=== PATIENT | male | born 1980 | race Caucasian/White ===

== ENCOUNTER 2018-03-27 20:26 | Emergency (ER) | payer SELFPAY ==
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
[2018-03-27 21:17] LABS: ABSOLUTE BASOPHILS # (AUTO) 0.1 10^3/uL (0.0-0.2); ABSOLUTE EOSINOPHILS # (AUTO) 0.1 10^3/uL (0.0-0.6); ABSOLUTE LYMPHOCYTES (AUTO) 2.5 10^3/uL (0.5-4.7); ABSOLUTE MONOCYTES (AUTO) 0.4 10^3/uL (0.1-1.4); BASOPHILS % (AUTO) 0.7 % (0-2); EOSINOPHILS % (AUTO) 1.1 % (0-6); HEMATOCRIT 41.2 % (37.9-51.0); HEMOGLOBIN 14.7 g/dL (13.5-17.0); MEAN CORPUSCULAR HEMOGLOBIN 29.3 pg (27.0-33.4); MEAN CORPUSCULAR HGB CONC 35.7 g/dL (32.0-36.0); MEAN CORPUSCULAR VOLUME 82 fl (80-97); MONOCYTES % (AUTO) 5.2 % (3-13); PLATELET COUNT 277 10^3/uL (150-450); RED BLOOD COUNT 5.02 10^6/uL (4.35-5.55); RED CELL DISTRIBUTION WIDTH 13.4 % (11.5-14.0); TOTAL CELLS COUNTED % (AUTO) 100 %; WHITE BLOOD COUNT 8.1 10^3/uL (4.0-10.5)
--- NOTE | 2018-03-27 21:20 | ER Document Report ---
ED General - General Chief Complaint: Psych Problem Stated Complaint: PSYCH PROBLEM Time Seen by Provider: 03/27/18 20:45 Notes: Patient is a 38-year-old male without chronic medical problems, no formally diagnosed mental health disorders in the past who presents with concerns of progressively worsening agitation and anger management issues. Patient states that for the past several months he has become increasingly erratic, having bursts of rage and taking it out on his significant other. He states that many of his symptoms started after his daughter was murdered last August. He also notes that inconsistent job employment and housing has made it difficult for him to cope. His significant other at the bedside corroborates his story. The patient does note that he has a history of passive suicidal thoughts but denies any active suicidal ideation or any plan to harm himself. He has not seen a doctor or a psychiatrist regarding today's concerns. Nothing improves or worsens his symptoms. He does not complain of any acute medical concerns. TRAVEL OUTSIDE OF THE [place] IN LAST 30 DAYS: No - Related Data Allergies/Adverse Reactions: No Known Allergies Allergy (Unverified 01/16/15 17:09) Past Medical History - General Information source: Patient - Social History Smoking Status: Current Every Day Smoker Frequency of alcohol use: Occasional Drug Abuse: Cocaine Lives with: Spouse/Significant other Family History: Reviewed & Not Pertinent Patient has suicidal ideation: Yes Patient has homicidal ideation: No Renal/ Medical History: Denies: Hx Peritoneal Dialysis - Immunizations Hx Diphtheria, Pertussis, Tetanus Vaccination: Yes Review of Systems - Review of Systems Notes: Constitutional: Negative for fever. HENT: Negative for sore throat. Eyes: Negative for visual changes. Cardiovascular: Negative for chest pain. Respiratory: Negative for shortness of breath. Gastrointestinal: Negative for abdominal pain, vomiting or diarrhea. Genitourinary: Negative for dysuria. Musculoskeletal: Negative for back pain. Skin: Negative for rash. Neurological: Negative for headaches, weakness or numbness. 10 point ROS negative except as marked above and in HPI. Physical Exam - Vital signs Vitals: Temp Pulse Resp BP Pulse Ox 98.4 F 67 14 144/91 H 97 03/27/18 20:35 03/27/18 20:35 03/27/18 20:35 03/27/18 20:35 03/27/18 20:35 Interpretation: Normal Notes: PHYSICAL EXAMINATION: GENERAL: Well-appearing, well-nourished and in no acute distress. HEAD: Atraumatic, normocephalic. EYES: Pupils equal round and reactive to light, extraocular movements intact, sclera anicteric, conjunctiva are normal. ENT: nares patent, oropharynx clear without exudates. Moist mucous membranes. NECK: Normal range of motion, supple without lymphadenopathy LUNGS: Breath sounds clear to auscultation bilaterally and equal. No wheezes rales or rhonchi. HEART: Regular rate and rhythm without murmurs ABDOMEN: Soft, nontender, normoactive bowel sounds. No guarding, no rebound. No masses appreciated. EXTREMITIES: Normal range of motion, no pitting or edema. No cyanosis. NEUROLOGICAL: No focal neurological deficits. Moves all extremities spontaneously and on command. PSYCH: Normal mood, normal affect. SKIN: Warm, Dry, normal turgor, no rashes or lesions noted. Course - Re-evaluation Re-evalutation: 03/27/18 21:17 Patient presents with several months of progressively worsening agitation, angry outbursts towards his significant other, but denies any acute safety concerns such as suicidal or homicidal ideation. He is awake, alert, does not appear to be under the influence of substances. Talking clearly. He and his significant at the bedside both deny any acute concern for dangerous behavior. He is here voluntarily and wishes to speak with psychiatry to have a psychiatric evaluation engage in community resources. He does not wish to remain in the emergency department overnight and plans to return in the emergency department in the morning for psychiatric assessment. He does not meet involuntary commitment criteria. His medical screening exam is unremarkable. His medical screening labs are likewise unremarkable and do not need to be repeated in the morning when he returns. He plans to return the morning and I have encouraged him to do so. - Vital Signs Vital signs: Temp Pulse Resp BP Pulse Ox 98.7 F 75 16 136/89 H 99 03/27/18 21:32 03/27/18 21:32 03/27/18 21:32 03/27/18 21:32 03/27/18 21:32 - Laboratory Result Diagrams: 03/27/18 20:55 03/27/18 20:55 Laboratory results interpreted by me: 03/27/18 03/27/18 20:55 20:55 Sodium 145.8 H Urine Protein 30 H Urine Urobilinogen 2.0 H Salicylates < 1.0 L Acetaminophen < 10 L Discharge - Discharge Clinical Impression: Excessive anger, Difficulty coping Depression Qualifiers: Depression Type: unspecified Qualified Code(s): F32.9 - Major depressive disorder, single episode, unspecified Condition: Good Disposition: HOME, SELF-CARE Additional Instructions: Please return tomorrow to speak with psychiatry in the morning. Your labs should not need to be repeated. Please return sooner if you have thoughts of wanting to hurt yourself, hurt others, or have any other symptoms that are concerning to you.
[2018-03-27 21:28] LABS: ALANINE AMINOTRANSFERASE 38 U/L (21-72); ALKALINE PHOSPHATASE 72 U/L (38-126); ANION GAP 13 (5-19); ASPARTATE AMINO TRANSFERASE 31 U/L (17-59); BILIRUBIN,DIRECT 0.3 mg/dL (0.0-0.4); BILIRUBIN,TOTAL 1.3 mg/dL (0.2-1.3); BLOOD UREA NITROGEN 13 mg/dL (7-20); CALCIUM 9.8 mg/dL (8.4-10.2); CARBON DIOXIDE 29 mmol/L (22-30); CHLORIDE 104 mmol/L (98-107); GLUCOSE 104 mg/dL (75-110); POTASSIUM 3.9 mmol/L (3.6-5.0); SODIUM 145.8 mmol/L (137-145); TOTAL PROTEIN 8.1 g/dL (6.3-8.2)
[2018-03-27 21:29] LABS: ACETAMINOPHEN < 10 ug/mL (10-30); ALCOHOL < 10 mg/dL (NONE DETECTED); SALICYLATE < 1.0 mg/dL (2.0-20.0)
[2018-03-27 21:37] LABS: APPEARANCE,URINE SLIGHTLY-CLOUDY; BILIRUBIN,URINE NEGATIVE (NEGATIVE); GLUCOSE, URINE NEGATIVE (NEGATIVE); KETONES,URINE NEGATIVE (NEGATIVE); LEUKOCYTE ESTERASE,URINE NEGATIVE (NEGATIVE); NITRITE,URINE NEGATIVE (NEGATIVE); PROTEIN,URINE 30 mg/dL (NEGATIVE); URINE SPECIFIC GRAVITY 1.029
[2018-03-27 21:38] LABS: COLOR,URINE YELLOW
[2018-03-27 21:39] VITALS: BP 136/89
[2018-03-27 21:39] LABS: URINE AMPHETAMINES SCREEN NEGATIVE; URINE BARBITURATES SCREEN NEGATIVE; URINE BENZODIAZEPINES SCREEN NEGATIVE; URINE COCAINE SCREEN UNCONFIRMED POSITIVE; URINE MARIJUANA (THC) SCREEN NEGATIVE; URINE METHADONE SCREEN NEGATIVE; URINE PHENCYCLIDINE SCREEN NEGATIVE
== END 2018-03-27 21:33 | disposition home or self-care (01) ==
LOC: ER 20:26
DX: F32.9 Major depressive disorder, single episode, unspecified (principal); R45.4 Irritability and anger; R45.1 Restlessness and agitation; F14.10 Cocaine abuse, uncomplicated; F17.200 Nicotine dependence, unspecified, uncomplicated
CPT/HCPCS: 36415; 80053; 80307; 81001; 85025; 99285

== ENCOUNTER 2018-03-28 08:23 | Emergency (ER) | payer SELFPAY ==
--- NOTE | 2018-03-28 09:49 | ER Document Report ---
ED Psych Disorder / Suicide - General Chief Complaint: Psych Problem Stated Complaint: PSYCH EVAULATION Time Seen by Provider: 03/28/18 09:41 Notes: The patient is a 38-year-old male who presents with several weeks of increasing mood swings and becoming very angry. He started with this symptoms after the of his daughter in August. He was seen in the ER last night for similar symptoms and was told to come back once mental health was available. Patient is self-medicating with cocaine and intermittent drinking. He denies SI , HI, hallucinations, chest pain or shortness of breath. TRAVEL OUTSIDE OF THE [place] IN LAST 30 DAYS: No - Related Data Allergies/Adverse Reactions: No Known Allergies Allergy (Verified 03/28/18 08:24) Past Medical History - General Information source: Patient - Social History Smoking Status: Unknown if Ever Smoked Frequency of alcohol use: Occasional Drug Abuse: Cocaine Family History: Reviewed & Not Pertinent Renal/ Medical History: Denies: Hx Peritoneal Dialysis - Immunizations Hx Diphtheria, Pertussis, Tetanus Vaccination: Yes Review of Systems - Review of Systems Notes: REVIEW OF SYSTEMS: CONSTITUTIONAL: -fevers, -chills EENT: -eye pain, -difficulty swallowing, -nasal congestion CARDIOVASCULAR: -chest pain, -syncope. RESPIRATORY: -cough, -SOB GASTROINTESTINAL: -abdominal pain, -nausea, -vomiting, -diarrhea GENITOURINARY: -dysuria, -hematuria MUSCULOSKELETAL: -back pain, -neck pain SKIN: -rash or skin lesions. HEMATOLOGIC: -easy bruising or bleeding. LYMPHATIC: -swollen, enlarged glands. NEUROLOGICAL: -altered mental status or loss of consciousness, -headache, - neurologic symptoms PSYCHIATRIC: +anger, +mood swings, -anxiety, -depression. ALL OTHER SYSTEMS REVIEWED AND NEGATIVE. Physical Exam - Vital signs Vitals: Temp Pulse Resp BP Pulse Ox 98.2 F 59 L 16 131/84 H 99 03/28/18 08:28 03/28/18 08:28 03/28/18 08:28 03/28/18 08:28 03/28/18 08:28 - Notes Notes: PHYSICAL EXAMINATION: GENERAL: Well-appearing, well-nourished and in no acute distress. HEAD: Atraumatic, normocephalic. EYES: Pupils equal round and reactive to light, extraocular movements intact, sclera anicteric, conjunctiva are normal. ENT: nares patent, oropharynx clear without exudates. Moist mucous membranes. NECK: Normal range of motion, supple without lymphadenopathy LUNGS: Breath sounds clear to auscultation bilaterally and equal. No wheezes rales or rhonchi. HEART: Regular rate and rhythm without murmurs ABDOMEN: Soft, nontender, normoactive bowel sounds. No guarding, no rebound. No masses appreciated. EXTREMITIES: Normal range of motion, no pitting or edema. No cyanosis. NEUROLOGICAL: Cranial nerves grossly intact. Normal speech, normal gait. Normal sensory and motor exams. PSYCH: Normal mood, normal affect. SKIN: Warm, Dry, normal turgor, no rashes or lesions noted. Course - Re-evaluation Re-evalutation: Labs and urine reviewed from last night. This will not be repeated. Mental health is evaluating patient and will make recommendations. 03/28/18 09:53 Mental Health saw patient and is recommending [facility] for grief counseling. Also counseled patient about cutting down other recreational drug use. No IVC criteria at this time. - Vital Signs Vital signs: Temp Pulse Resp BP Pulse Ox 98.2 F 59 L 16 131/84 H 99 03/28/18 08:28 03/28/18 08:28 03/28/18 08:28 03/28/18 08:28 03/28/18 08:28 Discharge - Discharge Clinical Impression: Mood swings, Excessive anger, Difficulty coping Condition: Stable Disposition: HOME, SELF-CARE Additional Instructions: Follow-up with [facility] for grief counseling. Try to stop using cocaine or any other recreational drugs, and this may lead to increased anger and mood swings. COCAINE ABUSE: Cocaine causes many dangerous medical problems. Problems can occur even with "usual" amounts. Cocaine affects judgement, creating a sense of invulnerability. Cocaine users often make bad decisions that seem "great" at the time. Most cocaine users eventually will be hurt by bad job performance, damaged personal relations, crime, and unsafe sexual practices. Toxic effects of cocaine can include seizures, hallucinations, delusions, high blood pressure, heart damage, or sudden . There's always the risk of a "bad batch." But heart attacks, brain hemorrhages, or cardiac arrest can occur unpredictably even with "normal" use. Injection of cocaine is risky for abscesses, endocarditis (heart infection) , pneumonia, and AIDS. Withdrawal from cocaine often causes anxiety and drug cravings. Some users become paranoid and psychotic. Many treatment programs are available, but you must make the decision to quit. Medication can be prescribed to control the symptoms of cocaine toxicity (beta blockers or benzodiazepines). Withdrawal symptoms may require tranquilizers. FOLLOW-UP CARE: If you have been referred to a physician for follow-up care, call the physician s office for an appointment as you were instructed or within the next two days. If you experience worsening or a significant change in your symptoms, notify the physician immediately or return to the Emergency Department at any time for re-evaluation. Forms: Elevated Blood Pressure Referrals: [facility] [Outside] - Follow up as needed [facility] [Outside] - Follow up as needed
[2018-03-28 10:16] VITALS: BP 128/78
--- NOTE | 2018-03-28 15:04 | PSYCHOLOGICAL NOTE ---
Psych Note - Psych Note Psych Note: Reason for Consult: anger issues The patient is a 38-year-old male who presents with several weeks of increasing mood swings and becoming very angry. He started with this symptoms after the of his daughter in August. He was seen in the ER last night for similar symptoms and was told to come back once mental health was available. Patient is self-medicating with cocaine and intermittent drinking. Patient discloses that he has noticed an increase in his anger outbursts especially since his daughter was killed. He denies receiving any therapeutic intervention since her . Patient denies any thoughts of suicidal ideation or homicidal ideation. He confirms that he does occasionally use cocaine however denies it this is contributing to his anger outbursts and does not feel that it is not the main source of his problem. He denies receiving any outpatient services; "I do not have insurance so did not think I be able to get anything." Patient denies any medications. Patient is alert and orientated to person, place, time and circumstance. Mood is euthymic with congruent affect. Patient is requesting assistance with anger outbursts; patient is currently calm and openly engaging with clinician. Delusions are absent behaviors congruent with intact reality based presentation i.e. organized and linear thought process. Eye contact was well-maintained. Conversational speech was within normal rate, tone and prosody. Intellectual abilities appear to be within the average range. Attention and concentration are fair. Insight, judgment, impulse control are fair. 292.9 (1 4.99) unspecified stimulant related disorder; cocaine V6 2.9 (Z 65.9) unspecified problem related to unspecified psychosocial circumstance; murder of his daughter V62.82 (6 3.4) uncomplicated bereavement Impression\\plan: Patient is cleared from acute psychiatric services. Patient is requesting assistance in obtaining outpatient mental health services for his anger issues. Patient denies receiving any services for his grief after the of his daughter. Patient uses cocaine recreationally and was highly encouraged to stop. Clinician provided psychoeducation on the effects of cocaine on the patient's mood. Clinician provided patient with resource list to include both detox, substance abuse treatment, and mental health treatment options. Dr. Finn was consulted and the care and management of this patient ; attending physician is agreement with recommendations and disposition.
== END 2018-03-28 10:00 | disposition home or self-care (01) ==
LOC: ER 08:23
DX: F43.29 Adjustment disorder with other symptoms (principal); R45.4 Irritability and anger; F39 Unspecified mood [affective] disorder; F14.90 Cocaine use, unspecified, uncomplicated; Z63.4 Disappearance and death of family member
CPT/HCPCS: 99284